=== PATIENT | male | born 1975 | race American Indian/Alaskan Native ===

== ENCOUNTER 2018-06-26 16:44 | Emergency (ER) | payer SELFPAY ==
[2018-06-26 16:49] VITALS: BP 114/80
--- NOTE | 2018-06-26 18:26 | Emergency Department Report ---
Chief Complaint: Medical Clearance Stated Complaint: MED REFILL Time Seen by Provider: 06/26/18 18:10 - HPI History of Present Illness: Is a 43-year-old [place] male past medical history of hypertension who is presenting for medication refill. Patient states that he is from [place] and he is run out of his furosemide carvedilol enalapril and spironolactone. Patient has no complaints of shortness of breath chest pain dizziness at this time. - ROS Review of Systems: All systems reviewed and are negative - Exam Vital Signs: Vital Signs 06/26/18 16:47 Temperature 98.3 F Pulse Rate 91 H Respiratory 18 Rate Blood Pressure 114/80 O2 Sat by Pulse 99 Oximetry Physical Exam: Alert and oriented 3 respirations are steady and nonlabored MSE screening note: Focused history and physical exam performed. Due to findings the following was ordered: ED Medical Decision Making - Medical Decision Making Patient is not medical emergency however he did pay the hospitals co-pay and refills will be given. ED Disposition for MSE Clinical Impression: Medicine refill Disposition: DC- TO HOME OR SELFCARE Is pt being admited?: No Does the pt Need Aspirin: No Condition: Stable Prescriptions: Carvedilol [Coreg] 6.25 mg PO BID #60 tablet Enalapril Maleate [Vasotec] 10 mg PO DAILY #30 Furosemide [Lasix TAB] 40 mg PO QDAY #30 tablet Spironolactone [Aldactone] 25 mg PO QDAY #30 tablet Referrals: PRIMARY CARE, [Primary Care Provider] - 3-5 Days
== END 2018-06-26 18:38 | disposition home or self-care (01) ==
LOC: ED 16:44
DX: I10 Essential (primary) hypertension (principal); Z76.0 Encounter for issue of repeat prescription
CPT/HCPCS: 99282